=== PATIENT | female | born 1975 | race Caucasian/White ===

== ENCOUNTER 2017-07-14 10:22 | Emergency (ER) | payer MEDICAID ==
--- NOTE | 2017-07-14 12:05 | XRay Report ---
CHEST 2 VIEWS INDICATION: Shortness of breath. COMPARISON: None similar at this institution. FINDINGS: PA and lateral chest radiographs demonstrate normal cardiomediastinal silhouette. Clear lungs. Slight mid to lower thoracic spine degenerative spurring. Abdomen shielded. CONCLUSION: No acute disease in the chest. Thank you for the opportunity to participate in this patient's care.
[2017-07-14 12:19] LABS: Basophils % (Auto) 0.5 % (0.0-1.8); Eosinophils # (Auto) 0.9 K/mm3 (0.0-0.4); Eosinophils % (Auto) 10.2 % (0.0-4.3); Hematocrit 38.3 % (30.3-42.9); Hemoglobin 12.8 gm/dl (10.1-14.3); Lymphocytes # (Auto) 1.9 K/mm3 (1.2-5.4); Lymphocytes % (Auto) 21.8 % (13.4-35.0); Mean Corpuscular HGB Conc 33 % (30-34); Mean Corpuscular Hemoglobin 27 pg (28-32); Mean Corpuscular Volume 82 fl (79-97); Monocytes # (Auto) 0.9 K/mm3 (0.0-0.8); Monocytes % (Auto) 9.7 % (0.0-7.3); Platelet Count 262 K/mm3 (140-440); Red Blood Count 4.65 M/mm3 (3.65-5.03); Red Cell Distribution Width 16.6 % (13.2-15.2)
[2017-07-14 13:30] LABS: BUN/Creatinine Ratio 23; Blood Urea Nitrogen 9 mg/dL (7-17); Calcium 8.9 mg/dL (8.4-10.2); Hemolysis Index 4
--- NOTE | 2017-07-14 19:16 | Emergency Department Report ---
ED Chest Pain HPI - General Chief Complaint: Dyspnea/Respdistress Stated Complaint: DIFFICULTY BREATHING Time Seen by Provider: 07/14/17 18:34 Source: patient Mode of arrival: Ambulatory Limitations: No Limitations - History of Present Illness Initial Comments: 41-year-old female with a past medical history of thyroid cancer currently 10 weeks presents to the hospital complaining of shortness of breath 10 weeks. Patient has been short of breath with chest pain throughout her . She describes pain at the center and right-sided chest as a pressure that occurs with deep inspiration. Patient finds herself take shallow breaths to avoid the pain. Pain rated 8 in intensity. Denies pain with palpation. Patient complains of postnasal drip which causes her to cough. No complaints of fever, recent travel, history of PE/DVT, or calf pain or Edema. Patient complains of intermittent cramping pain from both her knees upward they do not include her calfts. Patient was sent by her [facility] doctor Dr. Martinez to r/ o PE Severity scale (0 -10): 0 - Related Data Allergies Allergy/AdvReac Type Severity Reaction Status Date / Time No Known Allergies Allergy Unverified 07/14/17 11:02 Heart Score - HEART Score History: Slightly suspicious EKG: Normal Age: < 45 Risk factors: No known risk factors Troponin: < normal limit HEART Score: 0 ED Review of Systems ROS: Stated complaint: DIFFICULTY BREATHING Other details as noted in HPI Comment: All other systems reviewed and negative ED Past Medical Hx - Past Medical History Previous Medical History?: Yes Hx of Cancer: Yes (thyroid) Additional medical history: Vaginal dleivery x 2 - Surgical History Past Surgical History?: Yes Additional Surgical History: Uterine fibroids removed, Partial thyroidectomy due to thyroid cancer - Social History Smoking Status: Former Smoker Substance Use Type: Prescribed ED Physical Exam - General Limitations: No Limitations - Other Other exam information: General: No limitations, patient is alert in no acute distress Head exam: Atraumatic, normocephalic Eyes exam: Normal appearance, pupils equal reactive to light, extraocular movements intact ENT: Moist mucous membrane, normal oropharynx Neck exam: Normal inspection, full range of motion Respiratory exam: Clear to auscultation bilateral, no wheezes, rales, crackles, chest wall nontender Cardiovascular: Normal rate and rhythm, normal heart sounds Abdomen: Soft, nondistended, and nontender, with normal bowel sounds, no rebound, or guarding Extremity: Full range of motion normal inspection no deformity, no calf tenderness, leg edema, leg asymmetry Back: Normal Inspection, full range of motion, no tenderness Neurologic: Alert, oriented x3, cranial nerves intact, no motor or sensory deficit Psychiatric: normal affect, normal mood Skin: Warm, dry, intact ED Course Vital Signs 07/14/17 07/14/17 07/14/17 11:02 14:41 18:31 Temperature 97.6 F 97.4 F L 97.6 F Pulse Rate 94 H 84 79 Respiratory 22 16 18 Rate Blood Pressure 131/65 Blood Pressure 138/80 150/90 [Left] O2 Sat by Pulse 97 99 100 Oximetry - Consultations Consultation #1: 07/14/17 19:[address] Melendrez corporate travel consultant for Dr. Martinez. Given the d-dimer is negative, no DVT symptoms, and normal vitals recommended outpatient follow- up and no imaging at this time. ED Medical Decision Making - Lab Data Result diagrams: 07/14/17 11:51 07/14/17 11:51 Lab Results 07/14/17 07/14/17 07/14/17 Range/Units 11:51 11:51 11:51 WBC 8.8 (4.5-11.0) K/mm3 RBC 4.65 (3.65-5.03) M/mm3 Hgb 12.8 (10.1-14.3) gm/dl Hct 38.3 (30.3-42.9) % MCV 82 (79-97) fl MCH 27 L (28-32) pg MCHC 33 (30-34) % RDW 16.6 H (13.2-15.2) % Plt Count 262 (140-440) K/mm3 Lymph % (Auto) 21.8 (13.4-35.0) % [place] % (Auto) 9.7 H (0.0-7.3) % Eos % (Auto) 10.2 H (0.0-4.3) % Baso % (Auto) 0.5 (0.0-1.8) % Lymph # 1.9 (1.2-5.4) K/mm3 [place] # 0.9 H (0.0-0.8) K/mm3 Eos # 0.9 H (0.0-0.4) K/mm3 Baso # 0.0 (0.0-0.1) K/mm3 Seg Neutrophils % 57.8 (40.0-70.0) % Seg Neutrophils # 5.1 (1.8-7.7) K/mm3 D-Dimer 159.81 (0-234) ng/mlDDU Sodium 136 L (137-145) mmol/L Potassium 3.8 (3.6-5.0) mmol/L Chloride 97.8 L (98-107) mmol/L Carbon Dioxide 24 (22-30) mmol/L Anion Gap 18 mmol/L BUN 9 (7-17) mg/dL Creatinine 0.4 L (0.7-1.2) mg/dL Estimated GFR > 60 ml/min BUN/Creatinine Ratio 23 % Glucose 88 (65-100) mg/dL Calcium 8.9 (8.4-10.2) mg/dL Troponin T < 0.010 (0.00-0.029) ng/mL - EKG Data -: EKG Interpreted by Me EKG shows normal: sinus rhythm, axis (qrs 39), QRS complexes (79), ST-T waves ( no stemi/t inv) Rate: normal (93) - Radiology Data Radiology results: report reviewed cxr 2 views: naf - Medical Decision Making Patient has had pain and dyspnea with inspiration 10 weeks. No DVT symptoms. cxr neg, D-dimer less than 250, normal heart rate, and 100% oxygenation. Unlikely that patient has a PE given the after the forementioned result. Case D/ w Dr Melendrez and agrees further lung imaging not indicated at this time. Pt will be d/demetra to f/u with [facility] in several days. - Differential Diagnosis dyspnea and , pneumothorax, PE, costochondritis, atypical chest pa Critical Care Time: No Critical care attestation.: If time is entered above; I have spent that time in minutes in the direct care of this critically ill patient, excluding procedure time. ED Disposition Clinical Impression: Pleuritic chest pain Disposition: DC-01 TO HOME OR SELFCARE Is pt being admited?: No Does the pt Need Aspirin: No Condition: Stable Instructions: Chest Pain (ED) Additional Instructions: Take Tylenol as needed for pain. Follow-up with your [facility] doctor within 2-3 days. Please return if symptoms worsen as indicated by your discharge instructions. Referrals: DEBBIE VAUGHN MD [Staff Physician] - 2-3 Days Time of Disposition: 19:19
[2017-07-14 19:48] VITALS: BP 139/63
== END 2017-07-14 19:47 | disposition home or self-care (01) ==
LOC: ED 10:22
DX: O99.511 Diseases of the respiratory system complicating pregnancy, first trimester (principal); R07.81 Pleurodynia; Z87.891 Personal history of nicotine dependence; Z3A.10 10 weeks gestation of pregnancy
CPT/HCPCS: 36415; 71046; 80048; 84484; 85025; 85379; 93005; 93010; 99284

== ENCOUNTER 2018-01-10 10:18 | Outpatient (CLI) | payer MEDICAID ==
[2018-01-10 11:06] VITALS: BP 140/87
[2018-01-10] MEDS ORDERED: LACTATED RINGERS 1,000 ML ONE (12:04)
[2018-01-10 12:12] LABS: Hematocrit 40.2 % (30.3-42.9); Hemoglobin 13.5 gm/dl (10.1-14.3); Mean Corpuscular HGB Conc 34 % (30-34); Mean Corpuscular Hemoglobin 29 pg (28-32); Mean Corpuscular Volume 85 fl (79-97); Platelet Count 235 K/mm3 (140-440); Red Blood Count 4.71 M/mm3 (3.65-5.03); Red Cell Distribution Width 14.3 % (13.2-15.2)
[2018-01-10 12:30] LABS: Bacteria,Urine 2+ /HPF (Negative); Bilirubin,Urine NEG (Negative); Blood,Urine NEG (Negative); Calcium Oxalate Crystals,Urine 2+; Color,Urine Yellow (Yellow); Mucus,Urine FEW /HPF; Urobilinogen,Urine < 2.0 mg/dL (<2.0)
[2018-01-10] MEDS ORDERED: LACTATED RINGERS 500 ML IV ONE (12:49)
[2018-01-10 13:02] LABS: Alanine Aminotransferase 21 units/L (7-56)
[2018-01-10 13:38] LABS: Uric Acid 4.3 mg/dL (3.5-7.6)
[2018-01-10] MEDS ORDERED: PEPCID IV SCH (14:00)
--- NOTE | 2018-01-10 15:17 | Ultrasound Report ---
ULTRASOUND BIOPHYSICAL PROFILE: History: DFM Technique: Transabdominal ultrasound with Doppler interrogation. 2 - breathing movements 2 - movements 2 - posture and tone 2 - Qualitative amniotic fluid volume 8 - TOTAL SCORE OF POSSIBLE 8 Heart Rate (bpm) 139
--- NOTE | 2018-01-10 15:18 | Ultrasound Report ---
OB ULTRASOUND History decreased movement. Technique: Transabdominal ultrasound with Doppler interrogation. Gestation: Single Position: Cephalic Amniotic Fluid: Normal OBINNA = 18.9 cm Heart Rate: 139 BPM BPD: 9.2 cm = 37 w 2 d HC: 34.3 cm = 39 w 4 d AC: 35.7 cm = 39 w 4 d FL: 7.2 cm = 37 w 0 d HC/AC Ratio: 0.96 Cephalic Index: 78 Estimated Weight: 3583 grams Clinical age = 37 w 0 d EDC: 01/31/18 US Gest. Age = 38 w 3 d EDC: 01/21/18 IMPRESSION: Viable, single intrauterine as described.
== END 2018-01-10 14:50 | disposition home or self-care (01) ==
LOC: TRG 10:18
PROVIDERS: ATTEND Obstetrics & Gynecology
DX: O47.03 False labor before 37 completed weeks of gestation, third trimester (principal); O10.02 Pre-existing essential hypertension complicating childbirth; O24.419 Gestational diabetes mellitus in pregnancy, unspecified control; Z3A.36 36 weeks gestation of pregnancy
CPT/HCPCS: 36415; 59025; 76816; 76819; 81001; 82565; 83615; 84450; 84460; 84550; 85027; 96360; 96365; J7120

== ENCOUNTER 2018-01-17 05:38 | Inpatient (IN) | payer MEDICAID ==
--- NOTE | 2018-01-16 17:54 | History and Physical Report ---
History of Present Illness Date of examination: 01/14/18 Date of admission: 01/17/18 Chief complaint: here for c section History of present illness: Pt lupe for primary c/s due to previous myomectomy at 37 wks. Pt is AMA and had GDM that is not controlled on oral meds. Pt has been complicated by hypothroidisam( not on any meds) and h/o anxiety/depression( again pt d/c all meds and had been referred to psych). Pt has h/o noncomplicance also. Pt seen on 01/13/19 and as per notes take by JEANNETTE Davey(Report not on the chart), it was recommend that pt be delivered due to elevation of blood pressures in the [facility] office and having 3+protein in UA. She was given the added diagnosis of pre E. Pt does not desires BTL at this time. All risk EDC Confirmation: 02/06/2018 Gestational Age: 7 4/7 weeks Past History : 5 Term Births: 2 Living Children: 2 Spont. Ab: 2 # 1 Delivery date: 1998 Weeks Gestation: FT Delivery type: Anesthesia type: epidural Delivery location: [place] [facility] Sex: Male weight: 6.0 # 2 Delivery date: 2007 Weeks Gestation: FT Delivery type: Anesthesia type: none Delivery location: [facility] Sex: Male weight: 10-+ # 3 Delivery date: 2005 Delivery type: SAB # 4 Delivery date: 2006 Delivery type: SAB Past Medical History: Anxiety Depression Hypothyroidism-thyroid removed Past Surgical History: Partial thyriod removed-2016. did bx was told cancer cells were there. 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 did bx was told cancer cells were there. Myomectomy-was told needed c/s done 2016 Abnormal PAP: negative AVTAR Exposure: negative Infertility: negative Uterine Anomaly: negative Uterine Surgery (not C/S): negative Other Gynecologic Problems: negative Family Hx: HTN high cholesterol Thyoid DZ Social Hx: no e/t/d single Infection History Hx of STD: none Partner hx. of genital herpes: no Rash, Viral, or Febrile illness since last LMP? no Varicella/Chicken Pox Status: Previous Disease Genetic History ADVANCED MATERNAL AGE Congenital Heart Defect: Mom: no Dad: no Henrietta Disease: Mom: no Dad: no Thalassemia Mom: no Dad: no Neural Tube Defect Mom: no Dad: no Down's Syndrome Mom: no Dad: no Abelino-Sachs Mom: no Dad: no Sickle Cell Disease/Trait Mom: no Dad: no Hemophilia Mom: no Dad: no Muscular Dystrophy Mom: no Dad: no Cystic Fibrosis Mom: no Dad: no Crissy Chorea Mom: no Dad: no Mental Retardation Mom: no Dad: no Fragile X Mom: no Dad: no Other Genetic/Chromosomal Disorder Mom: no Dad: no Child w/other defect Mom: no Dad: no Enviromental Exposures Xray Exposure: no Medication, drug, or alcohol use since LMP: no Chemical/Other Exposure: no Exposure to Cat Liter: no Hx of Parvovirus (Fifth Disease): no Occupational Exposure to Children: none Current Allergies (reviewed today): No known allergies Past History Past Medical History: diabetes, thyroid disease, other (see hpi) Past Surgical History: thyroid, myomectomy PSYCH TECH History: denies: abnormal PAP smear, chlamydia Family/Genetic History: other (see hpi) Social history: no significant social history, - Obstetrical History Expected Date of Delivery: 02/06/18 Actual Gestation: 37 Week(s) 0 Day(s) : 3 Spontaneous Abortions: 3 Medications and Allergies Allergies Allergy/AdvReac Type Severity Reaction Status Date / Time No Known Allergies Allergy Unverified 07/14/17 11:02 Review of Systems All systems: negative - Physical Exam Cardiovascular: Normal S1, Normal S2 Lungs: Positive: Clear to auscultation, Normal air movement Abdomen: Positive: normal appearance, soft. Negative: distention, tenderness, guarding Genitourinary (Female): Positive: other (deferred) - Obstetrical FHR: auscultation normal Results All other labs normal. Assessment and Plan - Patient Problems (1) 37 weeks gestation of Status: Acute (2) H/O myomectomy Status: Acute Plan to address problem: -admit for primary cs -all risk benefits were d/w pt and all questions were addressed and answered -consents were signed and placed on the chart. (3) Anxiety Status: Acute (4) Depression Status: Acute (5) Gestational diabetes mellitus (GDM) Status: Acute Qualifiers: Trimester: third trimester Plan to address problem: -uncontrolled on metformin (6) Hypothyroid Status: Acute Qualifiers: Hypothyroidism type: acquired Qualified Code(s): E03.9 - Hypothyroidism, unspecified (7) AMA (advanced maternal age) multigravida 35+ Status: Acute (8) Mild pre-eclampsia Status: Acute Qualifiers: Trimester: third trimester Qualified Code(s): O14.03 - Mild to moderate pre -eclampsia, third trimester
[~2018-01-17 05:38] MED LIST: ANCEF/STERILE WATER 2 GM/20 ML 2 GM/20 ML SYRINGE IV NR; BICITRA PO ONE; LACTATED RINGERS 1,000 ML IV SCH; PEPCID IV ONE; PITOCin/NS 20 UNIT/1000ML DRIP 20 UNITS/1,000 ML BAG IV SCH; REGLAN IV ONE
[2018-01-17 06:32] LABS: Basophils % (Auto) 0.3 % (0.0-1.8); Eosinophils # (Auto) 0.2 K/mm3 (0.0-0.4); Eosinophils % (Auto) 2.4 % (0.0-4.3); Hematocrit 39.9 % (30.3-42.9); Hemoglobin 13.4 gm/dl (10.1-14.3); Lymphocytes # (Auto) 2.4 K/mm3 (1.2-5.4); Lymphocytes % (Auto) 28.2 % (13.4-35.0); Mean Corpuscular HGB Conc 34 % (30-34); Mean Corpuscular Hemoglobin 29 pg (28-32); Mean Corpuscular Volume 86 fl (79-97); Monocytes # (Auto) 0.9 K/mm3 (0.0-0.8); Monocytes % (Auto) 10.9 % (0.0-7.3); Platelet Count 222 K/mm3 (140-440); Red Blood Count 4.66 M/mm3 (3.65-5.03); Red Cell Distribution Width 14.4 % (13.2-15.2)
[2018-01-17] MEDS ORDERED: REGLAN ONE (07:03)
[2018-01-17] MEDS ORDERED: PEPCID IV ONE (07:04)
[2018-01-17] MEDS ORDERED: BICITRA ONE (07:09)
--- NOTE | 2018-01-17 07:17 | Anesthesia Consultation ---
Anesthesia Consult and Med Hx Date of service: 01/17/18 - Airway Anesthetic Teeth Evaluation: Good ROM Head & Neck: Adequate Mental/Hyoid Distance: Adequate Mallampati Class: Class II Intubation Access Assessment: Probably Good - Pre-Operative Health Status ASA Pre-Surgery Classification: ASA3 Proposed Anesthetic Plan: Epidural, Spinal - Pulmonary Hx Asthma: No COPD: No Hx Pneumonia: No - Cardiovascular System Hx Hypertension: No - Central Nervous System Hx Seizures: No Hx Psychiatric Problems: No - Endocrine Hx Renal Disease: No Hx End Stage Renal Disease: No Hx Hypothyroidism: Yes Hx Hyperthyroidism: No - Hematic Hx Anemia: No Hx Sickle Cell Disease: No - Other Systems Hx Alcohol Use: No Hx Obesity: Yes (BMI 40.2)
[2018-01-17] MEDS ORDERED: BENADRYL IV PRN (07:19)
[2018-01-17] MEDS ORDERED: DILAUDID IV PRN (07:19)
[2018-01-17] MEDS ORDERED: NARCAN 0.4 MG/1 ML IV PRN ×2 (07:19→09:05)
[2018-01-17] MEDS ORDERED: PHENERGAN PR PRN (07:19)
[2018-01-17] MEDS ORDERED: PHENERGAN PO PRN (07:19)
[2018-01-17] MEDS ORDERED: ZOFRAN IV PRN (07:19)
--- NOTE | 2018-01-17 07:19 | Anesthesia Day of Surgery ---
Anesthesia Day of Surgery - Day of Surgery Patient Examined: Yes Patient H&P Reviewed: Yes Patient is NPO: Yes
[2018-01-17] MEDS ORDERED: NEO SYNEPHRINE/NS Syringe(OR USE) IV ONE (07:55)
[2018-01-17] MEDS ORDERED: SODIUM CHLORIDE FLUSH SYRINGE 10 ML IV NR (08:00)
[2018-01-17] MEDS ORDERED: ZOFRAN ONE (08:28)
[2018-01-17] MEDS ORDERED: ASTRAMORPH PF 10MG/10ML ONE (08:35)
[2018-01-17] MEDS ORDERED: WATER FOR IRRIG STERILE IR ONE (08:36)
[2018-01-17] MEDS ORDERED: NACL 0.9% IR ONE (08:36)
[2018-01-17] MEDS ORDERED: LACTATED RINGERS 1,000 ML ONE (09:01)
[2018-01-17] MEDS ORDERED: TUCKS PAD TP PRN (09:05)
[2018-01-17] MEDS ORDERED: LANSINOH TP PRN (09:05)
--- NOTE | 2018-01-17 09:16 | Operative Report ---
Operative Report Operative Report: Date of procedure: 01/17/2018 Pre-operative diagnosis: 37 1/7 wks gestation Advanced maternal age Gestational diabetes noncompliant Hypothyroidism Obesity Mild preeclampsia Anxiety Depression Previous myomectomy Post-operative diagnosis: Same Procedure name(s): Primary low transverse section via Pfannenstiel skin incision Surgeon: Dr. Erickson Corporate Representative: STEVE Anesthesia: Combined spinal epidural EBL: 700 mL Urine output: 100 mL of clear urine out at the end of procedure Fluids: 1600 mL Findings: Liveborn male infant weight 7 pounds 8.5 ounces Apgars of 8 and 9 at one and 5 minutes Several small fibroids noted both anteriorly second be seen and posteriorly that could be palpated. None seemed to be more than 2 cm in size. Adnexa cannot be evaluated due to being unable to exteriorize uterus due to uterine size Indications: Patient with previous history of myomectomy was told that she needed to have section for delivery. Patient was scheduled for primary section. Patient's section is being done at this time due to having uncontrolled diabetes as well as a new diagnosis of mild preeclampsia. These recommendations that were made by Dr. Adams with [facility]. Patient was to be delivered at 37 weeks. His and alternatives were discussed with the patient. Consents were signed and placed on the chart. Procedure: Patient was taking to the operating room. Patient was then prepped and draped in sterile fashion after anesthesia was found to be adequate. A low transverse skin incision was made with the scalpel and carried down to the underlying layer of fascia with the Bovie. The fascia was then incised in the midline and this incision was extended bilaterally with the Bovie. The superior aspect of the fascia was grasped with Daisy clamps tented upward and dissected off of the anterior rectus muscles with the scalpel. In similar fashion the inferior aspect of the fascia was grasped with Daisy clamps tented upward and dissected off of the anterior rectus muscles. The rectus muscles were then bluntly divided in the midline. The peritoneum was identified and entered into sharply. The Charlie retractor was placed. The bladder blade was placed. A lower transverse uterine incision was made with the scalpel and extended bilaterally with the bandage scissors. Artificial rupture of membranes was performed yielding clear amniotic fluid. The 's head was then delivered atraumatically with application of the Kiwi vacuum 1 pull. Care was taken to afford anterior fontanelle with placement of the Kiwi vacuum. Total time vacuum on the 's head was less than 10 seconds. The anterior shoulder and rest of delivered without difficulty. Nuchal cord 1 was noted and easily reduced. The umbilical cord was clamped x2. The cord was cut. The infant was then placed in sterile bassinet. The placenta was manually extracted in its entirety. The uterus was exteriorized and cleared of all clots and debris. The uterine incision was closed using 0 Vicryl in a running locking fashion. A second imbricating layer of the same suture was then created. The posterior cul-de-sac was copiously irrigated. The uterus was returned to the abdomen. The gutters were also irrigated. The anterior rectus muscles were reapproximated using 3-0 Vicryl. The anterior rectus fascia was reapproximated using 0 Vicryl in a running fashion. The subcuticular fat was reapproximated using 2-0 Vicryl in a running fashion. The skin was reapproximated with 4-0 Monocryl in a subcuticular stitch. The patient tolerated the procedure well. Sponge lap and needle counts were all correct x3. Patient was taken to the recovery room awake and in stable condition.
[2018-01-17] MEDS: MAGNESIUM SULFATE 40GM/1000ML 40 GM/1,000 ML BAG IV SCH (11:30)
[2018-01-17] MEDS: ANCEF/NS 1 GM/50 ML 1 GM/50 ML BAG IV SCH ×2 (16:50→23:16)
[2018-01-17] MEDS: TORADOL IV PRN ×2 (17:24→23:22)
[2018-01-17] MEDS: D5LR 1,000 ML IV SCH (20:35)
[2018-01-17 20:44] LABS: Hemoglobin 11.8 gm/dl (10.1-14.3)
[2018-01-18] MEDS: TORADOL IV PRN ×3 (05:37→20:05)
[2018-01-18] MEDS: MAGNESIUM SULFATE 40GM/1000ML 40 GM/1,000 ML BAG IV SCH (05:50)
--- NOTE | 2018-01-18 08:29 | Progress Note ---
Assessment and Plan Mag sulfate to be d/c'd today around 11am, dressing dry and intact. VSSAF, H&H 11.8/35.0, last mag level 5.4, urine output adequate. Lochia scant. denies LAY, visual changes or epigastric pain. Continue postop pathway and monitoring b/p closely. - Patient Problems (1) delivery delivered Current Visit: Yes Status: Acute (2) Mild pre-eclampsia Current Visit: No Status: Acute Qualifiers: Trimester: third trimester Qualified Code(s): O14.03 - Mild to moderate pre -eclampsia, third trimester Subjective - Subjective Date of service: 01/18/18 Principal diagnosis: postop day #1 s/p repeat c/s, pre-e Patient reports: pain well controlled, no flatus, no nauseated : in NICU Objective - Vital Signs Latest vital signs: Vital Signs Temp Pulse Resp BP BP Pulse Ox 01/18/18 06:30 98.4 F 78 18 118/79 01/18/18 06:07 18 01/18/18 05:37 18 01/18/18 04:00 98.7 F 64 16 116/67 01/17/18 23:52 18 01/17/18 23:30 98.7 F 78 16 114/69 01/17/18 23:22 18 01/17/18 20:30 98 F 90 16 125/72 01/17/18 20:19 18 01/17/18 19:49 18 01/17/18 18:26 97.6 F 94 H 20 139/72 96 01/17/18 10:30 98.4 F 92 H 20 136/84 97 01/17/18 10:02 98.6 F 87 16 127/66 98 01/17/18 09:48 85 14 125/73 97 01/17/18 09:30 89 14 127/71 100 01/17/18 09:20 91 H 18 131/70 99 01/17/18 09:15 91 H 16 124/69 100 01/17/18 09:10 89 18 124/62 100 01/17/18 09:05 97.8 F 89 18 111/56 01/17/18 08:38 87 110/66 99 Intake and Output 01/17/18 01/18/18 01/18/18 23:59 07:59 15:59 Intake Total 50 1058.333 Output Total 600 900 Balance -550 158.333 Intake: IV 50 458.333 ANCEF/NS 1 GM/50 ML 1 gm 50 In 50 ml @ 100 mls/hr IV Q8H MARIA VICTORIA Rx#:[id number] MAGNESIUM SULFATE 40GM/ 458.333 1000ML 40 gm In 1,000 ml @ 1 GM/HR 25 mls/hr IV DIRECT MARIA VICTORIA Rx#:[id number] Intake, Free Water 600 Output: Urine 600 900 Indwelling Catheter 600 900 Other: Total, Output Amount 600 900 - Exam Breasts: Present: normal, Cardiovascular: Present: Regular rate Lungs: Present: Clear to auscultation, Normal air movement Abdomen: Present: normal appearance Vulva: both: normal Uterus: Present: normal, firm, fundal height at umbilicus Extremities: Present: normal Incision: Present: normal, dry, dressed (rn to remove when patient ambulatory) - Labs Labs: Abnormal lab results 01/17/18 01/17/18 01/18/18 Range/Units 12:36 18:12 00:08 Magnesium 2.70 H 4.00 H 5.00 H (1.7-2.3) mg/dL 01/18/18 Range/Units 05:25 Magnesium 5.40 H (1.7-2.3) mg/dL
[2018-01-18] MEDS ORDERED: MYLICON PO PRN (08:30)
[2018-01-18] MEDS: D5LR 1,000 ML IV SCH (10:56)
[2018-01-18] MEDS: MILK OF MAGNESIA PO PRN (16:58)
[2018-01-18] MEDS: PERCOCET 5/325 PO PRN ×2 (16:58→22:51)
[2018-01-18] MEDS: MOTRIN PO PRN (20:05)
[2018-01-19] MEDS: TORADOL IV PRN ×2 (05:41→15:28)
--- NOTE | 2018-01-19 08:02 | Discharge Summary ---
Providers - Providers Date of Admission: 01/17/18 05:38 Date of discharge: 01/19/18 (pt agrees with d/c) Attending physician: DEBBIE VAUGHN Primary care physician: DEBBIE VAUGHN Hospitalization Reason for admission: section Delivery: Procedure: repeat low transverse Episiotomy: none Laceration: none Incision: normal, dry, intact Other procedures: none complications: none Discharge diagnosis: IUP at term delivered [place] baby: male Hospital course: uncomplicated repeat section Pt sleeping C/O being dizzy after receiving pain medication Otherwise w/o complaint VSS FF below umb Lochia scant Incision D&I H&H stable Asymptomatic anemia Doing well s/p c/s P: d/c today with instructions RTO 1 week postop visit. Condition at discharge: Good Disposition: DC-01 TO HOME OR SELFCARE - Discharge Diagnoses (1) delivery delivered Status: Acute Comment: RTO 1 week postop care Plan - Discharge Medications Prescriptions: Docusate Sodium [Colace] 100 mg PO BID PRN #30 capsule PRN Reason: Constipation Ferrous Sulfate 325 mg PO QDAY #30 tablet.dr Ibuprofen 800 mg PO Q6HR #30 tablet Lidocain2.5%/Prilocai2.5% [Emla] 2 gm TP ONCE #1 tube oxyCODONE /ACETAMINOPHEN [Percocet 5/325] 1 tab PO Q4HR #30 tab - Provider Discharge Summary Activity: routine, no sex for 6 weeks, no heavy lifting 4 weeks, no strenuous exercise Diet: routine Instructions: routine Additional instructions: [] Smoking cessation referral if applicable(refer to patient education folder for contact #) [] Refer to [facility]'s [facility] Booklet Call your doctor immediately for: * Fever > 100.5 * Heavy vaginal bleeding ( >1 pad per hour) * Severe persistent headache * Shortness of breath * Reddened, hot, painful area to leg or breast * Drainage or odor from incision. * Keep incision clean and dry at all times and follow doctor's instructions regarding bathing/showering - Follow up plan Follow up: DEBBIE VAUGHN MD [Primary Care Provider] - 7 Days (Congratulations! Please call [phone] to schedule your postoperative visit in 1 week. Take medications as instructed. Call with concerns.)
[2018-01-19] MEDS: PERCOCET 5/325 PO PRN (10:28)
[2018-01-19] MEDS: MILK OF MAGNESIA PO PRN (10:28)
[2018-01-19] MEDS: MOTRIN PO PRN (10:29)
[2018-01-19 16:22] VITALS: BP 139/70
== END 2018-01-19 16:50 | disposition home or self-care (01) | DRG 765 ==
LOC: APU 05:38 → OB 10:38
PROVIDERS: ADMIT Obstetrics & Gynecology; ATTEND Obstetrics & Gynecology
PROC: 10D00Z1 Extraction of Products of Conception, Low, Open Approach (ICD-10-PCS; principal; 2018-01-17)
DX: O14.04 Mild to moderate pre-eclampsia, complicating childbirth (principal); Z68.41 Body mass index [BMI] 40.0-44.9, adult; E66.01 Morbid (severe) obesity due to excess calories; O99.344 Other mental disorders complicating childbirth; F41.8 Other specified anxiety disorders; F32.9 Major depressive disorder, single episode, unspecified; O99.284 Endocrine, nutritional and metabolic diseases complicating childbirth; E03.9 Hypothyroidism, unspecified; O24.429 Gestational diabetes mellitus in childbirth, unspecified control; O99.214 Obesity complicating childbirth; Z71.3 Dietary counseling and surveillance; Z3A.37 37 weeks gestation of pregnancy; Z37.0 Single live birth
CPT/HCPCS: 36415; 82962; 83735; 85014; 85018; 85025; 86850; 86900; 86901; 88307; 99211; G0463; J0690; J1170; J1200; J1885; J2274; J2370; J2405; J2590; J2765; J3475; J7120; J7121; Q0169